=== PATIENT | female | born 1975 | race Caucasian/White ===

== ENCOUNTER 2018-05-22 07:53 | Outpatient (CLI) | payer OTHER ==
--- NOTE | 2018-05-22 09:18 | MMO ---
BILATERAL SCREENING MAMMOGRAM: Date: 05/22/18 HISTORY: 42-year-old female. Routine screening mammography. COMPARISON: 03/27/14, 05/15/15, 04/21/17. TECHNIQUE: CC and MLO views of both breasts are submitted for interpretation, with implants present and displace d. This patient's mammogram was reviewed with the assistance of computer-aided detection. FINDINGS: The breasts are composed of scattered fibroglandular tissue. Bilaterally, no suspicious dominant mass , architectural distortion, or suspicious calcifications. Bilateral implants are intact. IMPRESSION: BIRADS 2: Benign Finding(s) RECOMMENDATION: Annual mammogram. POS: [facility]
== END 2018-05-22 07:54 | disposition home or self-care (01) ==
LOC: SCSMAMMO 07:53
PROVIDERS: ATTEND Obstetrics & Gynecology
DX: Z12.31 Encounter for screening mammogram for malignant neoplasm of breast (principal)
CPT/HCPCS: 77067

== ENCOUNTER 2019-01-11 06:59 | Outpatient (CLI) | payer OTHER ==
--- NOTE | 2019-01-11 10:24 | CT ---
CT TEMPORAL BONES NONCONTRAST: DATE: 01/11/2019. HISTORY: A 43-year-old female with left conductive hearing loss. COMPARISON: None. FINDINGS: There is a paucity of pneumatized mastoid air cells bilaterally, especially on the left. The existin g bilateral pneumatized mastoid air cells, mastoid antra, and middle ear cavities, are clear. The os sicles are bilaterally intact, with no erosion or displacement. Scuta are bilaterally intact, with n o erosion. Tegmen tympani and tegmen mastoideum are bilaterally thin, making it difficult to evaluat e for tiny dehiscences. There is no large dehiscence. The internal auditory canals, cochleae, vestibules, vestibular aqueducts, semicircular canals, facial nerve canals, carotid canals, and jugular bulbs, have normal morphology. There is no dehiscence of the superior semicircular canals. IMPRESSION: 1. Paucity of pneumatized mastoid air cells, especially on the left. 2. Otherwise, negative. POS: [facility]
== END 2019-01-11 07:00 | disposition home or self-care (01) ==
LOC: BICCT 06:59
PROVIDERS: ATTEND Otolaryngology Otology & Neurotology
DX: H90.2 Conductive hearing loss, unspecified (principal)
CPT/HCPCS: 70480

== ENCOUNTER 2019-03-19 05:46 | Day surgery (SDC) | payer OTHER ==
[2019-03-16 10:46] VITALS: BMI 23.8
[2019-03-19] MEDS ORDERED: Gelfilm 1 EA Packet ONE (06:31)
[2019-03-19] MEDS ORDERED: Lidocaine 1% w/Epinephrine 1:100K 20 ML VIAL ONE (06:31)
[2019-03-19] MEDS ORDERED: EPINEPHrine 1 MG/ML AMP ONE (06:31)
[2019-03-19] MEDS ORDERED: Sodium Chloride 0.9% 10 ML ONE (06:31)
[2019-03-19] MEDS ORDERED: Bacitracin Zinc Ointment 30 gm TUBE ONE (06:31)
[2019-03-19] MEDS ORDERED: Bupivacaine/Epinephrine 0.25% 30 ML VIAL ONE (06:31)
[2019-03-19] MEDS ORDERED: Fentanyl 100 MCG/2 ML VIAL ONE (06:33)
[2019-03-19] MEDS ORDERED: Scopolamine 1.5 mg/72 hour Patch ONE (06:59)
[2019-03-19] MEDS ORDERED: PROPOFOL 40 ML ONE (07:02)
[2019-03-19] MEDS ORDERED: Ondansetron ODT 4 MG TAB ONE (10:01)
[2019-03-19] MEDS ORDERED: HYDROcodone/Acetaminophen 5/325 mg Tablet ONE (10:31)
--- NOTE | 2019-03-19 10:48 | OP ---
DATE OF PROCEDURE: 03/19/2019 PREOPERATIVE DIAGNOSIS: Left-sided otosclerosis conductive hearing loss. PROCEDURES PERFORMED: 1. Left tympanoplasty with ossicular chain reconstruction using a Lippy modification of a Galdamez prosthesis 4.5 mm. 2. Microscopic surgical procedure. POSTOPERATIVE DIAGNOSES: Chronic otitis media. No otosclerosis. ANESTHESIA: General. COMPLICATIONS: None. ESTIMATED BLOOD LOSS: None. SPECIMENS: None. ASSISTANTS: None. DISPOSITION: Stable to recovery room. DESCRIPTION OF PROCEDURE: Procedure #1. Left tympanoplasty with OCR: After informed consent was obtained, the patient was taken to the operating room and placed in supine position. General endotracheal anesthetic was administered. Table was rotated to 180 degrees. Left ear was injected postauricular and transcanal with 0.25% Marcaine with epinephrine. Inspecting the stapedectomy, fascia was harvested from the superior auricular incision. That wound was irrigated and closed with 3-0, Dermabond for the skin. Microscope was brought into view in the ear canal. I injected the canal with 1% lidocaine with epinephrine, and then a tympanomeatal flap was elevated at 12 o'clock and 6 o'clock position, carried down, and entered middle ear space. Scutum was curetted, and the chorda tympani was identified and remained intact and unmolested. Visualization showed the IS joint to be fibrous as best with tenuous connection to the capitulum of the stapes. The stapes was clearly mobile, as was the footplate, and malleus and incus moved well in continuity. A 4.5 Lippy modification of a Galdamez Titanium prosthesis was placed and noted to be more tension beyond our significant tension where the incus placed on it. Therefore, it was drilled approximately 0.1 mm using a 1-mm abel. This allowed it to be placed on a two-hand technique with excellent contact under mild pressure. The footplate region was wrapped with fascia to increase stability. Flap was placed back down, and temporalis fascia was used to reinforce posterior annular region. Gelfoam was placed on the incision. Bacitracin ointment and cotton ball were applied. Procedure #2. Microscopic surgical procedure: Throughout the entirety of the operation, microscope was integral part of the procedure using 4 to 14 power and high illumination. With these procedures completed, the patient tolerated them well and was turned over to Anesthesia in a stable condition. Job ID: [id number]
[2019-03-19] MEDS ORDERED: PHENYLEPHRINE-NS 100 MCG/ML 10 ML SYRINGE ONE (16:44)
[2019-03-19] MEDS ORDERED: PROPOFOL 200 MG/20 ML VIAL ONE (16:44)
[2019-03-19] MEDS ORDERED: ePHEDrine 50 MG/ML VIAL ONE (16:44)
[2019-03-19] MEDS ORDERED: Dexamethasone 20 MG/5 ML VIAL ONE (16:44)
[2019-03-19] MEDS ORDERED: Lidocaine 1% PF 5 ML VIAL ONE (16:44)
[2019-03-19] MEDS ORDERED: Ondansetron PF 4 MG/2 ML Vial ONE (16:44)
[2019-03-19] MEDS ORDERED: Rocuronium Bromide 10 MG/ML (10ML VIAL) ONE (16:44)
== END 2019-03-20 10:50 | disposition home or self-care (01) ==
LOC: SDC 05:46
PROVIDERS: ATTEND Otolaryngology Otology & Neurotology
PROC: 09Q60ZZ Repair Left Middle Ear, Open Approach (ICD-10-PCS; principal; 2019-03-20)
PROC: 09U Ear, Nose, Sinus, Supplement (ICD-10-PCS; principal; 2019-03-20)
DX: H66.92 Otitis media, unspecified, left ear (principal); H90.2 Conductive hearing loss, unspecified; E80.4 Gilbert syndrome; Z79.899 Other long term (current) drug therapy
CPT/HCPCS: 36415; 85014; J0171; J1100; J2001; J2405; J2704; J3010; J3490; Q0162